=== PATIENT | female | born 1945 | race Hispanic/Latino ===

== ENCOUNTER 2020-04-02 15:47 | Emergency (ER) | payer MEDICARE ==
[2020-04-02 16:45] LABS: BASOPHILS % (AUTO) 0.4 % (0.0-5.0); EOSINOPHILS % (AUTO) 0.4 % (0.0-8.0); HEMATOCRIT 37.5 % (36-48); LYMPHOCYTES % (AUTO) 35.8 % (21.0-51.0); MEAN CORPUSCULAR HEMOGLOBIN 32.7 pg (27.0-33.0); MEAN CORPUSCULAR HGB CONC 34.4 g/dL (32.0-36.0); MEAN CORPUSCULAR VOLUME 94.9 fL (79-99); MONOCYTES % (AUTO) 11.5 % (3.0-13.0); NEUTROPHILS % (AUTO) 51.7 % (40.0-77.0); PLATELET COUNT (AUTO) 211 K/uL (130-400); RED BLOOD CELL COUNT(AUTO) 3.95 MIL/uL (4.00-5.50); RED CELL DISTRIBUTION WIDTH 11.7 % (11.0-15.5); WHITE BLOOD COUNT (AUTO) 4.7 K/uL (4.8-10.8)
[2020-04-02 16:56] LABS: POTASSIUM 3.4 mmol/L (3.5-5.1)
[2020-04-02 16:57] LABS: INR 0.9 (0.85-1.15); PARTIAL THROMBOPLASTIN TIME 29.5 SEC (26.3-35.5); PROTHROMBIN TIME 9.8 SEC (9.6-11.6)
[2020-04-02 17:03] LABS: ALBUMIN 4.2 g/dL (3.5-5.0); BILIRUBIN,TOTAL 0.3 mg/dL (0.2-1.0); TOTAL PROTEIN, SERUM 8.1 g/dL (6.0-8.3)
== END 2020-04-02 18:36 | disposition left against medical advice (07) ==
LOC: EDH 15:47
DX: G45.9 Transient cerebral ischemic attack, unspecified (principal); I10 Essential (primary) hypertension; M81.0 Age-related osteoporosis without current pathological fracture
CPT/HCPCS: 36415; 70450; 80053; 82550; 83721; 84484; 85025; 85610; 85730; 93005

== ENCOUNTER → 2020-08-13 | Outpatient (CLI) | payer OTHER | END | disposition home or self-care (01) | LOC: RAH 12:02 | PROVIDERS: ATTEND Internal Medicine | DX: M84.48XA Pathological fracture, other site, initial encounter for fracture (principal) | CPT/HCPCS: 72100 ==

== ENCOUNTER → 2022-03-25 | Outpatient (CLI) | payer OTHER | END | disposition home or self-care (01) | LOC: SHCH 11:45 | PROVIDERS: ATTEND Internal Medicine | DX: I34.8 Other nonrheumatic mitral valve disorders (principal); I51.7 Cardiomegaly; R00.2 Palpitations | CPT/HCPCS: 93306 ==

== ENCOUNTER → 2022-03-29 | Outpatient (CLI) | payer OTHER ==
[~2022-03-29] MED LIST: REGADENOSON 0.4 MG/5 ML PF SYG IVP SCH
== END | disposition home or self-care (01) ==
LOC: OIH 09:13
PROVIDERS: ATTEND Internal Medicine
DX: R94.31 Abnormal electrocardiogram [ECG] [EKG] (principal); R94.39 Abnormal result of other cardiovascular function study
CPT/HCPCS: 78452; 96374; 93017; J2785; A9500 ×2